=== PATIENT | male | born 1995 | race Caucasian/White ===

== ENCOUNTER 2023-03-20 18:11 | Emergency (ER) | payer OTHER ==
[~2023-03-20] VITALS: Ht 175.3 cm; Wt 63.5 kg
[2023-03-20 18:35] VITALS: BP 145/86
== END 2023-03-20 18:43 | disposition home or self-care (01) ==
LOC: ER 18:11
DX: Z71.89 Other specified counseling (principal); Z91.011 Allergy to milk products; Z88.0 Allergy status to penicillin
CPT/HCPCS: 99281

== ENCOUNTER 2024-11-21 14:31 | Emergency (ER) | payer OTHER ==
[~2024-11-21] VITALS: Ht 167.6 cm; Wt 72.6 kg
[2024-11-21 15:05] VITALS: BP 122/98
== END 2024-11-21 15:09 | disposition home or self-care (01) ==
LOC: ER 14:31
DX: Z76.0 Encounter for issue of repeat prescription (principal); Z91.011 Allergy to milk products; Z88.0 Allergy status to penicillin
CPT/HCPCS: 99281